=== PATIENT | female | born 1970 | race Caucasian/White ===

== ENCOUNTER → 2016-09-07 | Outpatient (CLI) | payer BC ==
[~2016-09-07] MED LIST: ALBU6.7H IH; BECL8.7A5 IH; HYDR-522 PO; IBUP-1510 PO; IMIT50 PO; LIOR10 PO; MONT10TA21 PO
== END | disposition home or self-care (01) ==
LOC: LAB 09:31
PROVIDERS: ATTEND Nurse Practitioner Family
DX: R73.03 Prediabetes (principal)
CPT/HCPCS: 83036

== ENCOUNTER → 2016-11-19 | Outpatient (CLI) | payer BC ==
[~2016-11-19] MED LIST changes: +BACL-141 PO; -LIOR10 PO
== END | disposition home or self-care (01) ==
LOC: US 09:26
PROVIDERS: ATTEND Obstetrics & Gynecology Obstetrics
DX: N92.6 Irregular menstruation, unspecified (principal); N88.8 Other specified noninflammatory disorders of cervix uteri
CPT/HCPCS: 76830; 76856

== ENCOUNTER → 2017-02-25 | Outpatient (CLI) | payer BC ==
[~2017-02-25] MED LIST changes: -IBUP-1510 PO; +IBUP-2030 PO
[2017-02-25 08:56] LABS: BASOPHILS % 0.5 % (0.0-2.0); EOSINOPHILS % 1.4 % (0.0-5.0); HEMATOCRIT. 35.1 % (36.0-48.0); HEMOGLOBIN. 11.6 g/dL (12.0-16.0); LYMPHOCYTES % 29.6 % (20.0-50.0); MEAN CORPUSCULAR HEMOGLOBIN 24.1 pg (28.0-32.0); MEAN CORPUSCULAR VOLUME 72.7 fL (81.0-99.0); MONOCYTES % 4.4 % (2.0-8.0); NEUTROPHILS % 64.1 % (40.0-76.0); PLATELET 387 x1000/uL (130-400); RED BLOOD CELL COUNT 4.83 mill/uL (4.2-5.4)
[2017-02-25 09:17] LABS: CARBON DIOXIDE 24 mEq/L (21-32); CHLORIDE 108 mEq/L (98-107)
== END | disposition home or self-care (01) ==
LOC: LAB 06:43
PROVIDERS: ATTEND Nurse Practitioner Family
DX: D72.829 Elevated white blood cell count, unspecified (principal); R73.03 Prediabetes
CPT/HCPCS: 36415; 80053; 83036; 85025

== ENCOUNTER → 2017-09-21 | Outpatient (CLI) | payer BC ==
[2017-09-21 11:57] LABS: BASOPHILS % 0.4 % (0.0-2.0); HEMATOCRIT. 37.2 % (36.0-48.0); HEMOGLOBIN. 12.3 g/dL (12.0-16.0); LYMPHOCYTES % 24.3 % (20.0-50.0); MEAN CORPUSCULAR HEMOGLOBIN 25.3 pg (28.0-32.0); MEAN CORPUSCULAR VOLUME 76.7 fL (81.0-99.0); MEAN PLATELET VOLUME 7.2 fl (7.4-10.4); MONOCYTES % 3.8 % (2.0-8.0); NEUTROPHILS % 70.5 % (40.0-76.0); PLATELET 419 x1000/uL (130-400); RED BLOOD CELL COUNT 4.85 mill/uL (4.2-5.4); RED CELL DISTRIBUTION WIDTH 16.7 % (11.6-14.6)
[2017-09-21 12:22] LABS: CHLORIDE 108 mEq/L (98-107)
[2017-09-21 12:31] LABS: HDL CHOLESTEROL 35 mg/dL (40-59); LDL CHOLESTEROL 85 mg/dL (5-100)
== END | disposition home or self-care (01) ==
LOC: LAB 11:08
PROVIDERS: ATTEND Nurse Practitioner Family
DX: K45.8 Other specified abdominal hernia without obstruction or gangrene (principal); M54.40 Lumbago with sciatica, unspecified side; R00.2 Palpitations
CPT/HCPCS: 36415; 80053; 82465; 83036; 83718; 83721; 85025

== ENCOUNTER → 2017-11-10 | Outpatient (CLI) | payer BC ==
[2017-11-10 11:59] LABS: HEMATOCRIT 37.9 % (36.0-48.0); HEMOGLOBIN 12.8 g/dL (12.0-16.0); MEAN CORPUSCULAR HEMOGLOBIN 25.6 pg (28.0-32.0); MEAN CORPUSCULAR VOLUME 76.2 fL (81.0-99.0); MEAN PLATELET VOLUME 7.1 fl (7.4-10.4); PLATELET 404 x1000/uL (130-400); RED BLOOD CELL COUNT 4.98 mill/uL (4.2-5.4); RED CELL DISTRIBUTION WIDTH 16.4 % (11.6-14.6)
[2017-11-10 12:35] LABS: TOTAL IRON BINDING CAPACITY 325 ug/dL (250-450)
[2017-11-10 17:35] LABS: PLATELET ESTIMATE INCREASED
[2017-11-10 19:49] LABS: CLARITY URINE CLOUDY (CLEAR); COLOR URINE YELLOW (YELLOW); KETONES URINE NEGATIVE (NEGATIVE); LEUKOCYTE ESTERASE URINE NEGATIVE (NEGATIVE); NITRITE URINE NEGATIVE (NEGATIVE); OCCULT BLOOD URINE NEGATIVE (NEGATIVE); PROTEIN URINE NEGATIVE (NEGATIVE); SPECIFIC GRAVITY URINE 1.017 (1.005-1.030); UROBILINOGEN URINE 0.2 E.U./dL (0.2-1.0)
== END | disposition home or self-care (01) ==
LOC: LAB 11:07
PROVIDERS: ATTEND Internal Medicine Hematology & Oncology
DX: D72.828 Other elevated white blood cell count (principal); D50.8 Other iron deficiency anemias
CPT/HCPCS: 36415; 81003; 82728; 83540; 83550; 85014; 85018; 85651; 87186

== ENCOUNTER → 2017-12-07 | Outpatient (CLI) | payer BC ==
[2017-12-07 11:06] LABS: BASOPHILS % 0.7 % (0.0-2.0); EOSINOPHILS % 1.4 % (0.0-5.0); HEMATOCRIT. 38.8 % (36.0-48.0); HEMOGLOBIN. 12.9 g/dL (12.0-16.0); LYMPHOCYTES % 24.9 % (20.0-50.0); MEAN CORPUSCULAR HEMOGLOBIN 25.6 pg (28.0-32.0); MEAN CORPUSCULAR VOLUME 77.2 fL (81.0-99.0); MEAN PLATELET VOLUME 7.2 fl (7.4-10.4); MONOCYTES % 4.4 % (2.0-8.0); NEUTROPHILS % 68.6 % (40.0-76.0); PLATELET 328 x1000/uL (130-400); RED BLOOD CELL COUNT 5.03 mill/uL (4.2-5.4); RED CELL DISTRIBUTION WIDTH 16.4 % (11.6-14.6)
[2017-12-07 11:07] LABS: CLARITY URINE CLEAR (CLEAR); COLOR URINE YELLOW (YELLOW); KETONES URINE NEGATIVE (NEGATIVE); LEUKOCYTE ESTERASE URINE NEGATIVE (NEGATIVE); NITRITE URINE NEGATIVE (NEGATIVE); OCCULT BLOOD URINE NEGATIVE (NEGATIVE); PROTEIN URINE NEGATIVE (NEGATIVE); SPECIFIC GRAVITY URINE 1.012 (1.005-1.030); UROBILINOGEN URINE 0.2 E.U./dL (0.2-1.0)
[2017-12-07 11:40] LABS: CHLORIDE 102 mEq/L (98-107)
== END | disposition home or self-care (01) ==
LOC: LAB 10:32
PROVIDERS: ATTEND Surgery
DX: Z01.818 Encounter for other preprocedural examination (principal); M54.2 Cervicalgia; R73.03 Prediabetes
CPT/HCPCS: 36415; 71045; 80053; 81003; 83036; 85025; 93005

== ENCOUNTER 2017-12-14 05:33 | Day surgery (SDC) | payer BC ==
[~2017-12-14] VITALS: Ht 157.5 cm; Wt 93.9 kg
[~2017-12-14 05:33] MED LIST changes: +LACTATED RINGERS 1,000 ML IV SCH
[2017-12-14] MEDS ORDERED: BUPIVACAINE HCL 0.5% (5MG/ML) 50ML ONE (06:03)
[2017-12-14] MEDS ORDERED: SKIN ADHESIVE 0.7 GM EA TOP ONE (06:03)
[2017-12-14 06:33] LABS: UCG SCREEN NEGATIVE
[2017-12-14] MEDS ORDERED: MIDAZOLAM HCL 5 MG/5 ML VIAL ONE (06:34)
[2017-12-14] MEDS ORDERED: PROPOFOL 200MG/20ML VIAL IV ONE ×2 (06:37→07:44)
[2017-12-14] MEDS ORDERED: PANT20TA3 PO (07:37)
[2017-12-14] MEDS ORDERED: GLYCOPYRROLATE 0.2 MG/ML 2ML VIAL ONE (09:23)
[2017-12-14] MEDS ORDERED: NEOSTIGMINE METHYLSULFATE 1MG/ML 10 ML VIAL ONE (09:23)
[2017-12-14] MEDS ORDERED: MORPHINE SULFATE 4 MG/ML CPJ (NOT FOR IM USE) IV PRN (10:15)
[2017-12-14] MEDS ORDERED: HYDROMORPHONE HCL/PF 2MG/ML CPJ IV NR (10:15)
[2017-12-14] MEDS ORDERED: ONDANSETRON HCL 4MG/2ML VIAL IV PRN (10:15)
[2017-12-14] MEDS ORDERED: HYDROMORPHONE HCL/PF 2MG/ML CPJ ONE (10:22)
[2017-12-14 11:02] VITALS: BP 106/68
== END 2017-12-14 11:30 | disposition home or self-care (01) ==
LOC: OR 05:33
PROVIDERS: ATTEND Surgery
DX: K43.9 Ventral hernia without obstruction or gangrene (principal); R73.03 Prediabetes; D50.9 Iron deficiency anemia, unspecified; Z88.0 Allergy status to penicillin; Z79.1 Long term (current) use of non-steroidal anti-inflammatories (NSAID); Z79.899 Other long term (current) drug therapy
CPT/HCPCS: 49652; 81025; C1781; G0168; J1170; J2250; J2270; J2710; J3490; J7120; J2405; J2704

== ENCOUNTER → 2018-03-14 | Outpatient (CLI) | payer BC ==
[~2018-03-14] MED LIST changes: -LACTATED RINGERS 1,000 ML IV SCH; +PANT20TA3 PO
== END | disposition home or self-care (01) ==
LOC: LAB 10:37
PROVIDERS: ATTEND Internal Medicine Nephrology
DX: E66.01 Morbid (severe) obesity due to excess calories (principal); R73.03 Prediabetes
CPT/HCPCS: 36415; 80061; 83036

== ENCOUNTER → 2018-07-12 | Outpatient (CLI) | payer BC ==
[~2018-07-12] MED LIST changes: +REGADENOSON 0.4 MG/5 ML IV ONE
== END | disposition home or self-care (01) ==
LOC: CARD 07:20
PROVIDERS: ATTEND Internal Medicine Clinical Cardiac Electrophysiology
DX: I20.8 Other forms of angina pectoris (principal); R06.02 Shortness of breath
CPT/HCPCS: 78452; 93017; A9500; J2785

== ENCOUNTER → 2018-11-11 | Outpatient (CLI) | payer BC ==
[~2018-11-11] MED LIST changes: -REGADENOSON 0.4 MG/5 ML IV ONE
[2018-11-11 10:20] LABS: BASOPHILS % 0.7 % (0.0-2.0); HEMATOCRIT. 38.3 % (36.0-48.0); HEMOGLOBIN. 12.7 g/dL (12.0-16.0); LYMPHOCYTES % 27.9 % (20.0-50.0); MEAN CORPUSCULAR HEMOGLOBIN 25.6 pg (28.0-32.0); MEAN CORPUSCULAR VOLUME 77.2 fL (81.0-99.0); MEAN PLATELET VOLUME 7.3 fl (7.4-10.4); MONOCYTES % 5.2 % (2.0-8.0); NEUTROPHILS % 65.2 % (40.0-76.0); PLATELET 374 x1000/uL (130-400); RED BLOOD CELL COUNT 4.97 mill/uL (4.2-5.4)
[2018-11-11 10:27] LABS: CHLORIDE 109 mEq/L (98-107)
== END | disposition home or self-care (01) ==
LOC: RAD 08:02
PROVIDERS: ATTEND Podiatrist Foot & Ankle Surgery
DX: M79.671 Pain in right foot (principal); M79.672 Pain in left foot; M10.9 Gout, unspecified; E11.9 Type 2 diabetes mellitus without complications
CPT/HCPCS: 36415; 73630; 83036; 84550

== ENCOUNTER 2019-07-11 14:02 | Emergency (ER) | payer BC ==
[~2019-07-11] VITALS: Ht 157.5 cm; Wt 97.0 kg
[~2019-07-11 14:02] MED LIST changes: -ALBU6.7H IH; +ALBU6.7H11 IH
[2019-07-11 14:46] VITALS: BP 110/43
== END 2019-07-11 14:47 | disposition home or self-care (01) ==
LOC: ER 14:02
DX: S52.121A Displaced fracture of head of right radius, initial encounter for closed fracture (principal); X58.XXXA Exposure to other specified factors, initial encounter; Y93.89 Activity, other specified; Y92.89 Other specified places as the place of occurrence of the external cause; Y99.8 Other external cause status; J45.909 Unspecified asthma, uncomplicated; Z98.890 Other specified postprocedural states; Z96.659 Presence of unspecified artificial knee joint; Z79.899 Other long term (current) drug therapy; Z88.0 Allergy status to penicillin
CPT/HCPCS: 29105; 99283

== ENCOUNTER → 2019-08-31 | Outpatient (CLI) | payer BC | END | disposition home or self-care (01) | LOC: CT 12:07 | PROVIDERS: ATTEND Surgery | DX: K42.9 Umbilical hernia without obstruction or gangrene (principal); K57.30 Diverticulosis of large intestine without perforation or abscess without bleeding; Z90.49 Acquired absence of other specified parts of digestive tract | CPT/HCPCS: 74176 ==

== ENCOUNTER → 2020-12-13 | Outpatient (CLI) | payer BC ==
[~2020-12-13] MED LIST changes: +PANT20TA17 PO; -PANT20TA3 PO
[2020-12-13 11:22] LABS: BASOPHILS % 0.4 % (0.0-2.0); EOSINOPHILS % 2.1 % (0.0-5.0); HEMATOCRIT. 40.3 % (36.0-48.0); HEMOGLOBIN. 14.1 g/dL (12.0-16.0); LYMPHOCYTES % 28.1 % (20.0-50.0); MEAN CORPUSCULAR HEMOGLOBIN 28.3 pg (28.0-32.0); MEAN CORPUSCULAR VOLUME 81.3 fL (81.0-99.0); MEAN PLATELET VOLUME 6.9 fl (7.4-10.4); MONOCYTES % 6.1 % (2.0-8.0); NEUTROPHILS % 63.3 % (40.0-76.0); PLATELET 391 x1000/uL (130-400); RED BLOOD CELL COUNT 4.96 mill/uL (4.2-5.4); RED CELL DISTRIBUTION WIDTH 13.9 % (11.6-14.6)
[2020-12-13 11:30] LABS: CHLORIDE 108 mEq/L (98-107)
[2020-12-13 11:36] LABS: LDL CHOLESTEROL 57 mg/dL (5-100)
[2020-12-13 11:37] LABS: HDL CHOLESTEROL 40 mg/dL (40-59)
[2020-12-13 11:38] LABS: T4 FREE 1.22 ng/dL (0.76-1.46)
[2020-12-13 11:52] LABS: FOLIC ACID (FOLATE) SERUM 10.7 ng/mL (>5.38)
== END | disposition home or self-care (01) ==
LOC: LAB 09:54
PROVIDERS: ATTEND Family Medicine
DX: Z13.29 Encounter for screening for other suspected endocrine disorder (principal); M17.11 Unilateral primary osteoarthritis, right knee; M25.761 Osteophyte, right knee; M25.561 Pain in right knee; M47.817 Spondylosis without myelopathy or radiculopathy, lumbosacral region; I10 Essential (primary) hypertension; E55.9 Vitamin D deficiency, unspecified; E78.5 Hyperlipidemia, unspecified
CPT/HCPCS: 36415; 72100; 73560; 80053; 80061; 82306; 82607; 82746; 83036; 84439; 84443; 84481; 85025

== ENCOUNTER → 2022-05-13 | Outpatient (CLI) | payer BC ==
[~2022-05-13] MED LIST changes: -ALBU6.7H11 IH; +ALBU6.7H15 IH
[2022-05-13 16:02] LABS: CHLORIDE 104 mEq/L (98-107)
[2022-05-13 16:11] LABS: HDL CHOLESTEROL 44 mg/dL (40-59); LDL CHOLESTEROL 78 mg/dL (5-100)
== END | disposition home or self-care (01) ==
LOC: MAMMO 09:40
PROVIDERS: ATTEND Family Medicine
DX: Z12.31 Encounter for screening mammogram for malignant neoplasm of breast (principal); I10 Essential (primary) hypertension; E55.9 Vitamin D deficiency, unspecified; E78.5 Hyperlipidemia, unspecified
CPT/HCPCS: 36415; 77067; 80053; 80061; 82306; 83036

== ENCOUNTER → 2022-08-31 | Outpatient (CLI) | payer BC ==
[2022-08-31 10:20] LABS: CHLORIDE 109 mEq/L (98-107)
[2022-08-31 10:27] LABS: HDL CHOLESTEROL 39 mg/dL (40-59); LDL CHOLESTEROL 69 mg/dL (5-100)
== END | disposition home or self-care (01) ==
LOC: LAB 08:57
PROVIDERS: ATTEND Family Medicine
DX: E11.65 Type 2 diabetes mellitus with hyperglycemia (principal); E55.9 Vitamin D deficiency, unspecified; E78.5 Hyperlipidemia, unspecified
CPT/HCPCS: 36415; 80053; 80061; 82306; 83036

== ENCOUNTER → 2023-05-25 | Outpatient (CLI) | payer BC ==
[~2023-05-25] MED LIST changes: +MONT-46 PO; -MONT10TA21 PO
== END | disposition home or self-care (01) ==
LOC: MAMMO 10:37
PROVIDERS: ATTEND Family Medicine
DX: Z12.31 Encounter for screening mammogram for malignant neoplasm of breast (principal)
CPT/HCPCS: 77063; 77067

== ENCOUNTER → 2023-06-01 | Outpatient (CLI) | payer BC ==
[2023-06-01 09:59] LABS: ALANINE AMINOTRANSFERASE 24 IU/L (10-49); ALBUMIN 4.2 g/dL (3.2-4.8); ASPARTATE AMINOTRANSFERASE 18 IU/L (<34); BILIRUBIN TOTAL 0.4 mg/dL (0.1-1.0); CALCIUM 9.3 mg/dL (8.7-10.4); CARBON DIOXIDE 26 mEq/L (21-32); CHLORIDE 107 mEq/L (98-107); CHOLESTEROL 110 mg/dL (<200); CREATININE 0.7 mg/dL (0.6-1.0); GLUCOSE 94 mg/dL (70-105); HDL CHOLESTEROL 34 mg/dL (>65); LDL CHOLESTEROL 83 mg/dL (5-100); POTASSIUM 4.4 mEq/L (3.5-5.1); PROTEIN TOTAL 6.7 g/dL (6.0-8.3); SODIUM 139 mEq/L (136-145); TRIGLYCERIDE 104 mg/dL (0-150); UREA NITROGEN BLOOD 9 mg/dL (9-23)
== END | disposition home or self-care (01) ==
LOC: LAB 09:12
PROVIDERS: ATTEND Family Medicine
DX: I10 Essential (primary) hypertension (principal); E11.65 Type 2 diabetes mellitus with hyperglycemia; E78.5 Hyperlipidemia, unspecified
CPT/HCPCS: 36415; 80053; 80061; 83036

== ENCOUNTER → 2023-07-07 | Outpatient (CLI) | payer BC ==
[~2023-07-07] MED LIST changes: +ASPI-1406 PO; +ATOR10TA69 PO; +HYDR-4001 PO; +LISI10TA26 PO; +MECL-115 PO; +ONDA4TAB50 PO; +OXYC-100 MT; +SEMA2PEN SQ; +SULF1TAB48 MT
[2023-07-07 09:36] LABS: BASOPHILS % 0.6 % (0.0-2.0); EOSINOPHILS % 0.8 % (0.0-5.0); HEMATOCRIT. 43.5 % (36.0-48.0); HEMOGLOBIN. 14.3 g/dL (12.0-16.0); LYMPHOCYTES % 24.6 % (20.0-50.0); MEAN CORPUSCULAR HEMOGLOBIN 27.7 pg (28.0-32.0); MEAN CORPUSCULAR HGB CONC 32.8 g/dL (31.0-37.0); MEAN CORPUSCULAR VOLUME 84.4 fL (81.0-99.0); MEAN PLATELET VOLUME 6.8 fl (7.4-10.4); MONOCYTES % 4.4 % (2.0-8.0); NEUTROPHILS % 69.6 % (40.0-76.0); PLATELET 403 x1000/uL (130-400); RED BLOOD CELL COUNT 5.16 mill/uL (4.2-5.4); RED CELL DISTRIBUTION WIDTH 14.7 % (11.6-14.6); WHITE BLOOD COUNT 13.6 x1000/uL (4.5-11.0)
[2023-07-07 09:50] LABS: CLARITY URINE CLEAR (CLEAR); COLOR URINE YELLOW (YELLOW)
[2023-07-07 09:50] LABS: ALANINE AMINOTRANSFERASE 17 IU/L (10-49); ALBUMIN 3.8 g/dL (3.2-4.8); ASPARTATE AMINOTRANSFERASE 10 IU/L (<34); BILIRUBIN TOTAL 0.4 mg/dL (0.1-1.0); CARBON DIOXIDE 27 mEq/L (21-32); CHLORIDE 103 mEq/L (98-107); CREATININE 0.8 mg/dL (0.6-1.0); GLUCOSE 95 mg/dL (70-105); POTASSIUM 3.8 mEq/L (3.5-5.1); PROTEIN TOTAL 6.9 g/dL (6.0-8.3); SODIUM 136 mEq/L (136-145); UREA NITROGEN BLOOD 12 mg/dL (9-23)
[2023-07-07 09:51] LABS: GLUCOSE URINE NEGATIVE (NEGATIVE); KETONES URINE NEGATIVE (NEGATIVE); LEUKOCYTE ESTERASE URINE NEGATIVE (NEGATIVE); NITRITE URINE NEGATIVE (NEGATIVE); OCCULT BLOOD URINE NEGATIVE (NEGATIVE); PROTEIN URINE NEGATIVE (NEGATIVE); UROBILINOGEN URINE 0.2 E.U./dL (0.2-1.0)
[2023-07-07 09:57] LABS: PARTIAL THROMBOPLASTIN TIME 27.7 sec (23.4-31.0); PROTHROMBIN TIME 10.3 sec (9.6-11.0)
== END | disposition home or self-care (01) ==
LOC: LAB 09:05
DX: Z01.818 Encounter for other preprocedural examination (principal); M17.12 Unilateral primary osteoarthritis, left knee
CPT/HCPCS: 36415; 71045; 80053; 81003; 85025; 86850; 86900; 93005

== ENCOUNTER 2023-07-09 06:25 | Inpatient (IN) | payer BC ==
[~2023-07-09] VITALS: Ht 157.5 cm; Wt 88.5 kg
[~2023-07-09 06:25] MED LIST changes: -ASPI-1406 PO; -BECL8.7A5 IH; -HYDR-522 PO; -IBUP-2030 PO; -IMIT50 PO; -OXYC-100 MT; -SEMA2PEN SQ; +SODIUM CHLORIDE 0.9% 1,000 ML IV SCH; -SULF1TAB48 MT
[2023-07-09] MEDS ORDERED: LIDOCAINE HCL 1%/EPI 1:200,000 30 ML VIAL ONE (06:53)
[2023-07-09] MEDS ORDERED: SKIN ADHESIVE 0.7 GM EA TOP ONE ×2 (06:53→07:07)
[2023-07-09] MEDS ORDERED: POLYMYXIN B SULFATE 500000 UNITS/VIAL ONE (06:53)
[2023-07-09] MEDS ORDERED: BUPIVACAINE HCL/PF 0.5% (5MG/ML) 10ML ONE (06:54)
[2023-07-09] MEDS ORDERED: ROPIVACAINE HCL 1% 20 ML VIAL EPI ONE (07:07)
[2023-07-09] MEDS ORDERED: KETOROLAC 30MG/ML VIAL ONE (07:07)
[2023-07-09] MEDS ORDERED: MORPHINE SULFATE/PF 1MG/ML 10ML AMP ONE (07:07)
[2023-07-09] MEDS ORDERED: VANCOMYCIN HCL 1 GM/VIAL ONE (08:18)
[2023-07-09] MEDS ORDERED: ASPI-1406 PO (08:21)
[2023-07-09] MEDS ORDERED: SULF1TAB48 MT (08:22)
[2023-07-09] MEDS ORDERED: OXYC-100 MT (08:22)
[2023-07-09] MEDS ORDERED: DEXAMETHASONE 4MG/ML 1ML VIAL ONE (08:33)
[2023-07-09] MEDS ORDERED: ONDANSETRON HCL 4MG/2ML INJ ONE (08:33)
[2023-07-09] MEDS ORDERED: PROPOFOL 200MG/20ML VIAL IV ONE (08:33)
[2023-07-09] MEDS ORDERED: LIDOCAINE HCL 1% 10 MG/ML 10ML VIAL ONE (08:33)
[2023-07-09] MEDS ORDERED: MIDAZOLAM HCL 2 MG/2 ML VIAL ONE (08:34)
[2023-07-09] MEDS ORDERED: FENTANYL CITRATE/PF 50MCG/ML 2ML VIAL ONE (08:34)
[2023-07-09] MEDS ORDERED: CLINDAMYCIN 600MG PREMIX 50 ML IV ONE ×2 (08:49→08:57)
[2023-07-09] MEDS ORDERED: TRANEXAMIC ACID 20 ML ONE (09:00)
[2023-07-09] MEDS ORDERED: MEPERIDINE HCL/PF 25MG/ML CPJ IV PRN (09:30)
[2023-07-09] MEDS ORDERED: HYDROMORPHONE HCL/PF 2MG/ML CPJ IV PRN (09:30)
[2023-07-09] MEDS ORDERED: LABETALOL 5MG/ML SYR 20 MG/4 ML SYRINGE IV PRN (09:30)
[2023-07-09] MEDS ORDERED: ONDANSETRON HCL 4MG/2ML INJ IV PRN ×2 (09:30→10:30)
[2023-07-09] MEDS ORDERED: CEFAZOLIN 1000MG PREMIX 50 ML IV SCH ×2 (10:30)
[2023-07-09] MEDS ORDERED: ACETAMINOPHEN 325MG TABLET PO PRN (10:30)
[2023-07-09] MEDS ORDERED: KETOROLAC 30MG/ML VIAL IV PRN (10:30)
[2023-07-09] MEDS ORDERED: DEXTROSE 50% WATER 50ML SYRINGE IV PRN (11:00)
[2023-07-09] MEDS ORDERED: NALOXONE HCL 0.4MG/ML VIAL IV PRN (11:00)
[2023-07-09] MEDS ORDERED: SEMA2PEN SQ (11:05)
[2023-07-09] MEDS ORDERED: SCOPOLAMINE HYDROBROMIDE PATCH 72HR TD NR ×2 (12:45)
[2023-07-09] MEDS: INSULIN LISPRO (LOW DOSE) 100 UNITS/ML SUBCUT SCH ×3 (13:00→21:00)
[2023-07-09] MEDS: BLOOD SUGAR DIAGNOSTIC STRIP TEST SCH ×3 (13:02→21:00)
[2023-07-09] MEDS: METOCLOPRAMIDE HCL 10MG/2ML VIAL IV SCH ×2 (13:50→23:54)
[2023-07-09 16:00] VITALS: BP 92/47; PULSE 70; RESP 20; TEMP 96.4
[2023-07-09] MEDS: SENNOSIDES/DOCUSATE SOD 8.6/50MG TABLET PO SCH (17:00)
[2023-07-09 17:23] VITALS: BP 92/47; PULSE 70; RESP 20; TEMP 96.4
[2023-07-09] MEDS: VANCOMYCIN 1G PREMIX 200 ML IV SCH (18:09)
[2023-07-09 20:00] VITALS: BP 98/54; PULSE 77; RESP 20; TEMP 97.7
[2023-07-09] MEDS ORDERED: BACLOFEN 10MG TABLET PO PRN (22:00)
[2023-07-09] MEDS ORDERED: PANTOPRAZOLE SODIUM 40 MG/VIAL IV PRN (22:00)
[2023-07-09] MEDS ORDERED: ALBUTEROL (0.083%) 2.5MG/3ML NEB HHN PRN (22:00)
[2023-07-09] MEDS ORDERED: DIPHENHYDRAMINE 25MG CAPSULE PO NR (23:45)
[2023-07-09] MEDS: DIPHENHYDRAMINE 50MG/ML VIAL IV PRN (23:54)
[2023-07-10] VITALS: BP 96/57; PULSE 86; RESP 20; TEMP 95.7
[2023-07-10 04:00] VITALS: BP 91/60; PULSE 98; RESP 20; TEMP 97.7
[2023-07-10] MEDS: METOCLOPRAMIDE HCL 10MG/2ML VIAL IV SCH ×3 (05:01→21:34)
[2023-07-10] MEDS: VANCOMYCIN 1G PREMIX 200 ML IV SCH ×2 (05:02→17:47)
[2023-07-10] MEDS: BLOOD SUGAR DIAGNOSTIC STRIP TEST SCH ×4 (07:20→21:07)
[2023-07-10] MEDS: INSULIN LISPRO (LOW DOSE) 100 UNITS/ML SUBCUT SCH ×4 (07:50→21:00)
[2023-07-10 08:00] VITALS: BP 105/48; PULSE 88; RESP 20; TEMP 97.9
[2023-07-10] MEDS: LISINOPRIL 5MG TABLET PO SCH ×2 (08:38→08:41)
[2023-07-10] MEDS: ASPIRIN 81MG TABLET PO SCH ×2 (08:38→17:47)
[2023-07-10] MEDS: SENNOSIDES/DOCUSATE SOD 8.6/50MG TABLET PO SCH ×2 (08:38→17:47)
[2023-07-10 08:44] LABS: BASOPHILS % 0.2 % (0.0-2.0); EOSINOPHILS % 0.4 % (0.0-5.0); HEMATOCRIT. 37.9 % (36.0-48.0); HEMOGLOBIN. 12.7 g/dL (12.0-16.0); LYMPHOCYTES % 13.5 % (20.0-50.0); MEAN CORPUSCULAR HEMOGLOBIN 28.1 pg (28.0-32.0); MEAN CORPUSCULAR HGB CONC 33.5 g/dL (31.0-37.0); MEAN CORPUSCULAR VOLUME 84.1 fL (81.0-99.0); MEAN PLATELET VOLUME 7.2 fl (7.4-10.4); MONOCYTES % 6.6 % (2.0-8.0); NEUTROPHILS % 79.3 % (40.0-76.0); PLATELET 288 x1000/uL (130-400); RED BLOOD CELL COUNT 4.51 mill/uL (4.2-5.4); RED CELL DISTRIBUTION WIDTH 14.8 % (11.6-14.6); WHITE BLOOD COUNT 15.1 x1000/uL (4.5-11.0)
[2023-07-10 08:57] LABS: ALANINE AMINOTRANSFERASE 20 IU/L (10-49); ALBUMIN 3.4 g/dL (3.2-4.8); ASPARTATE AMINOTRANSFERASE 14 IU/L (<34); BILIRUBIN TOTAL 0.8 mg/dL (0.1-1.0); CARBON DIOXIDE 27 mEq/L (21-32); CHLORIDE 103 mEq/L (98-107); CREATININE 0.6 mg/dL (0.6-1.0); GLUCOSE 111 mg/dL (70-105); POTASSIUM 3.9 mEq/L (3.5-5.1); PROTEIN TOTAL 6.3 g/dL (6.0-8.3); SODIUM 138 mEq/L (136-145); UREA NITROGEN BLOOD 13 mg/dL (9-23)
[2023-07-10] MEDS: HYDROCODONE/ACETAMINOPHEN 5/325MG TABLET PO PRN ×4 (10:04→21:21)
[2023-07-10 12:00] VITALS: BP 104/54; PULSE 109; RESP 20; TEMP 98.2
[2023-07-10] MEDS: DIPHENHYDRAMINE 50MG/ML VIAL IV PRN ×2 (12:50→21:34)
[2023-07-10 16:00] VITALS: BP 126/67; PULSE 89; RESP 19; TEMP 96.6
[2023-07-10] MEDS: MONTELUKAST SODIUM 10MG TABLET PO SCH (17:47)
[2023-07-10 20:00] VITALS: BP 111/53; PULSE 93; RESP 20; TEMP 99.3
[2023-07-10] MEDS: VANCOMYCIN 750MG PREMIX 150 ML IV SCH (20:32)
[2023-07-10] MEDS: ATORVASTATIN CALCIUM 10MG TABLET PO SCH (21:34)
[2023-07-11] VITALS: BP 119/61; PULSE 97; RESP 20; TEMP 99.5
[2023-07-11] MEDS: HYDROCODONE/ACETAMINOPHEN 5/325MG TABLET PO PRN ×8 (00:25→22:13)
[2023-07-11 04:00] VITALS: BP 128/69; PULSE 85; RESP 20; TEMP 97.7
[2023-07-11] MEDS: METOCLOPRAMIDE HCL 10MG/2ML VIAL IV SCH ×3 (06:46→21:46)
[2023-07-11] MEDS: BLOOD SUGAR DIAGNOSTIC STRIP TEST SCH ×4 (06:47→20:55)
[2023-07-11] MEDS: INSULIN LISPRO (LOW DOSE) 100 UNITS/ML SUBCUT SCH ×4 (07:50→20:56)
[2023-07-11] MEDS: VANCOMYCIN 750MG PREMIX 150 ML IV SCH ×2 (07:55→20:55)
[2023-07-11 08:00] VITALS: BP 108/66; PULSE 85; RESP 19; TEMP 97.5
[2023-07-11] MEDS: LISINOPRIL 5MG TABLET PO SCH (08:06)
[2023-07-11] MEDS: SENNOSIDES/DOCUSATE SOD 8.6/50MG TABLET PO SCH ×2 (08:06→17:42)
[2023-07-11] MEDS: ASPIRIN 81MG TABLET PO SCH ×2 (08:06→17:43)
[2023-07-11 12:00] VITALS: BP 126/77; PULSE 88; RESP 17; TEMP 98.8
[2023-07-11 16:00] VITALS: BP 130/68; PULSE 91; RESP 16; TEMP 98.1
[2023-07-11] MEDS: MONTELUKAST SODIUM 10MG TABLET PO SCH (17:43)
[2023-07-11 20:00] VITALS: BP 118/56; PULSE 94; RESP 18; TEMP 98.2
[2023-07-11] MEDS: ATORVASTATIN CALCIUM 10MG TABLET PO SCH (20:55)
[2023-07-12] VITALS: BP 123/59; PULSE 77; RESP 16; TEMP 98.1
[2023-07-12] MEDS: HYDROCODONE/ACETAMINOPHEN 5/325MG TABLET PO PRN ×7 (01:23→22:48)
[2023-07-12 04:00] VITALS: BP 128/71; PULSE 96; RESP 18; TEMP 97.9
[2023-07-12] MEDS: METOCLOPRAMIDE HCL 10MG/2ML VIAL IV SCH ×2 (05:59→14:00)
[2023-07-12] MEDS: BLOOD SUGAR DIAGNOSTIC STRIP TEST SCH ×4 (07:00→21:00)
[2023-07-12] MEDS: INSULIN LISPRO (LOW DOSE) 100 UNITS/ML SUBCUT SCH ×4 (07:01→21:00)
[2023-07-12 08:00] VITALS: BP 106/60; PULSE 86; RESP 19; TEMP 98.2
[2023-07-12] MEDS: SENNOSIDES/DOCUSATE SOD 8.6/50MG TABLET PO SCH ×2 (09:08→17:12)
[2023-07-12] MEDS: ASPIRIN 81MG TABLET PO SCH ×2 (09:08→17:12)
[2023-07-12] MEDS: LISINOPRIL 5MG TABLET PO SCH (09:08)
[2023-07-12 12:00] VITALS: BP_SYST 106; BP_SYST 108; BP_DIAS 60; BP_DIAS 64; PULSE 82; PULSE 86; RESP 18; RESP 19; TEMP 98.2
[2023-07-12 16:00] VITALS: BP 110/64; PULSE 92; RESP 19; TEMP 97.9
[2023-07-12] MEDS: MONTELUKAST SODIUM 10MG TABLET PO SCH (17:12)
[2023-07-12 20:00] VITALS: BP 90/34; PULSE 91; RESP 20; TEMP 98.1
[2023-07-12] MEDS: ATORVASTATIN CALCIUM 10MG TABLET PO SCH (22:32)
[2023-07-13] VITALS: BP 101/38; PULSE 81; RESP 20; TEMP 97.9
[2023-07-13 04:00] VITALS: BP 105/56; PULSE 85; RESP 20; TEMP 96.3
[2023-07-13] MEDS: HYDROCODONE/ACETAMINOPHEN 5/325MG TABLET PO PRN ×5 (05:00→21:48)
[2023-07-13] MEDS: BLOOD SUGAR DIAGNOSTIC STRIP TEST SCH ×4 (06:56→21:00)
[2023-07-13] MEDS: INSULIN LISPRO (LOW DOSE) 100 UNITS/ML SUBCUT SCH ×4 (07:49→21:00)
[2023-07-13 08:00] VITALS: BP 103/50; PULSE 72; RESP 18; TEMP 96.9
[2023-07-13] MEDS: SENNOSIDES/DOCUSATE SOD 8.6/50MG TABLET PO SCH ×2 (09:00→16:58)
[2023-07-13] MEDS: ASPIRIN 81MG TABLET PO SCH ×2 (09:00→16:58)
[2023-07-13] MEDS: LISINOPRIL 5MG TABLET PO SCH (09:00)
[2023-07-13 12:00] VITALS: BP 130/62; PULSE 79; RESP 19; TEMP 96.9
[2023-07-13 16:00] VITALS: BP 112/57; PULSE 89; RESP 17; TEMP 96.9
[2023-07-13] MEDS: MONTELUKAST SODIUM 10MG TABLET PO SCH (16:58)
[2023-07-13 20:00] VITALS: BP 109/42; PULSE 82; RESP 19; TEMP 98.6
[2023-07-13] MEDS: ATORVASTATIN CALCIUM 10MG TABLET PO SCH (21:46)
[2023-07-14] VITALS: BP 100/55; PULSE 75; RESP 20; TEMP 97.4
[2023-07-14] MEDS: HYDROCODONE/ACETAMINOPHEN 5/325MG TABLET PO PRN ×3 (03:02→08:57)
[2023-07-14 04:00] VITALS: BP 97/44; PULSE 74; RESP 17; TEMP 98
[2023-07-14] MEDS: BLOOD SUGAR DIAGNOSTIC STRIP TEST SCH ×3 (06:22→17:02)
[2023-07-14] MEDS: INSULIN LISPRO (LOW DOSE) 100 UNITS/ML SUBCUT SCH ×2 (07:50→12:50)
[2023-07-14 08:00] VITALS: BP 110/59; PULSE 69; RESP 19; TEMP 97.5
[2023-07-14] MEDS: LISINOPRIL 5MG TABLET PO SCH (08:46)
[2023-07-14] MEDS: SENNOSIDES/DOCUSATE SOD 8.6/50MG TABLET PO SCH ×2 (08:46→16:59)
[2023-07-14] MEDS: ASPIRIN 81MG TABLET PO SCH ×2 (08:46→16:59)
[2023-07-14 12:00] VITALS: BP 99/48; PULSE 81; RESP 19; TEMP 97.5
[2023-07-14 16:00] VITALS: BP 92/72; PULSE 82; RESP 19; TEMP 98.1
[2023-07-14] MEDS: MONTELUKAST SODIUM 10MG TABLET PO SCH (16:59)
[2023-07-14 17:50] VITALS: BP 110/60; PULSE 69; TEMP 97.8
== END 2023-07-14 18:39 | disposition home health service (06) | DRG 470 ==
LOC: OR 06:25 → 6EST 14:41
PROC: 0SRD0JA Replacement of Left Knee Joint with Synthetic Substitute, Uncemented, Open Approach (ICD-10-PCS; principal; 2023-07-09)
DX: M17.12 Unilateral primary osteoarthritis, left knee (principal); Z88.0 Allergy status to penicillin
CPT/HCPCS: 36415; 73562; 80053; 82962; 85025; 88305; 88311; 97110; 97116; 97162; 97166; 97530; J1100; J1200; J1885; J2250; J2274; J2405; J2704; J2765; J2795; J3010; J3370; J3490

== ENCOUNTER → 2023-07-26 | Outpatient (CLI) | payer BC ==
[~2023-07-26] MED LIST changes: +ASPI-1406 PO; +OXYC-100 MT; +SEMA2PEN SQ; -SODIUM CHLORIDE 0.9% 1,000 ML IV SCH; +SULF1TAB48 MT; +TRAM100C3 MT
== END | disposition home or self-care (01) ==
LOC: RAD 13:06
DX: M17.12 Unilateral primary osteoarthritis, left knee (principal); Z96.652 Presence of left artificial knee joint
CPT/HCPCS: 73562

== ENCOUNTER → 2023-09-06 | Outpatient (CLI) | payer BC ==
[~2023-09-06] MED LIST changes: +TRAM50TA3 MT; +TRAM50TA3 PO
== END | disposition home or self-care (01) ==
LOC: RAD 12:35
DX: M17.0 Bilateral primary osteoarthritis of knee (principal); Z96.652 Presence of left artificial knee joint
CPT/HCPCS: 73562

== ENCOUNTER → 2023-09-17 | Outpatient (CLI) | payer BC ==
[2023-09-17 08:53] LABS: BASOPHILS % 0.4 % (0.0-2.0); HEMATOCRIT. 41.2 % (36.0-48.0); LYMPHOCYTES % 26.9 % (20.0-50.0); MEAN CORPUSCULAR HEMOGLOBIN 28.1 pg (28.0-32.0); MEAN CORPUSCULAR VOLUME 82.6 fL (81.0-99.0); MEAN PLATELET VOLUME 7.4 fl (7.4-10.4); MONOCYTES % 4.7 % (2.0-8.0); PLATELET 369 x1000/uL (130-400); RED BLOOD CELL COUNT 4.99 mill/uL (4.2-5.4); RED CELL DISTRIBUTION WIDTH 14.4 % (11.6-14.6); WHITE BLOOD COUNT 9.9 x1000/uL (4.5-11.0)
[2023-09-17 08:58] LABS: CLARITY URINE CLEAR (CLEAR); COLOR URINE YELLOW (YELLOW); GLUCOSE URINE NEGATIVE (NEGATIVE); KETONES URINE NEGATIVE (NEGATIVE); LEUKOCYTE ESTERASE URINE NEGATIVE (NEGATIVE); NITRITE URINE NEGATIVE (NEGATIVE); OCCULT BLOOD URINE NEGATIVE (NEGATIVE); PH URINE 5.5 (4.5-8.0); PROTEIN URINE NEGATIVE (NEGATIVE); SPECIFIC GRAVITY URINE 1.007 (1.005-1.030); UROBILINOGEN URINE 0.2 E.U./dL (0.2-1.0)
[2023-09-17 09:27] LABS: ALANINE AMINOTRANSFERASE 16 IU/L (10-49); ALBUMIN 4.4 g/dL (3.2-4.8); ASPARTATE AMINOTRANSFERASE 17 IU/L (<34); BILIRUBIN TOTAL 0.4 mg/dL (0.1-1.0); CARBON DIOXIDE 25 mEq/L (21-32); CHLORIDE 107 mEq/L (98-107); CHOLESTEROL 121 mg/dL (<200); CREATININE 0.7 mg/dL (0.6-1.0); GLUCOSE 102 mg/dL (70-105); HDL CHOLESTEROL 41 mg/dL (>65); IRON 60 ug/dL (50-170); LDL CHOLESTEROL 69 mg/dL (5-100); PROTEIN TOTAL 7.9 g/dL (6.0-8.3); SODIUM 137 mEq/L (136-145); THYROID STIMULATING HORMONE 1.52 uIU/mL (0.55-4.78); TOTAL IRON BINDING CAPACITY 229 ug/dl (250-425); TRIGLYCERIDE 94 mg/dL (0-150); UREA NITROGEN BLOOD 10 mg/dL (9-23)
[2023-09-17 11:08] LABS: FERRITIN 180 ng/mL (10-291); FOLIC ACID (FOLATE) SERUM 13.09 ng/mL (>5.38); VITAMIN B12 SERUM 909 pg/mL (211-911)
== END | disposition home or self-care (01) ==
LOC: LAB 08:30
PROVIDERS: ATTEND Internal Medicine Geriatric Medicine
DX: Z00.01 Encounter for general adult medical examination with abnormal findings (principal); N39.0 Urinary tract infection, site not specified; E11.9 Type 2 diabetes mellitus without complications; E78.00 Pure hypercholesterolemia, unspecified
CPT/HCPCS: 36415; 80053; 80061; 81003; 82306; 82607; 82728; 82746; 83036; 83540; 83550; 84443; 85025; 86592

== ENCOUNTER → 2023-12-20 | Outpatient (CLI) | payer BC | END | disposition home or self-care (01) | LOC: RAD 12:04 | DX: M17.11 Unilateral primary osteoarthritis, right knee (principal); M25.761 Osteophyte, right knee; Z96.652 Presence of left artificial knee joint | CPT/HCPCS: 73562 ==

== ENCOUNTER → 2024-01-27 | Outpatient (CLI) | payer BC ==
[2024-01-27 12:13] LABS: BASOPHILS % 0.6 % (0.0-2.0); EOSINOPHILS % 0.8 % (0.0-5.0); HEMATOCRIT. 41.9 % (36.0-48.0); HEMOGLOBIN. 14.1 g/dL (12.0-16.0); LYMPHOCYTES % 27.1 % (20.0-50.0); MEAN CORPUSCULAR HEMOGLOBIN 28.2 pg (28.0-32.0); MEAN CORPUSCULAR HGB CONC 33.8 g/dL (31.0-37.0); MEAN CORPUSCULAR VOLUME 83.5 fL (81.0-99.0); MEAN PLATELET VOLUME 7.3 fl (7.4-10.4); MONOCYTES % 4.5 % (2.0-8.0); PLATELET 397 x1000/uL (130-400); RED BLOOD CELL COUNT 5.02 mill/uL (4.2-5.4); RED CELL DISTRIBUTION WIDTH 14.5 % (11.6-14.6); WHITE BLOOD COUNT 10.9 x1000/uL (4.5-11.0)
[2024-01-27 13:23] LABS: ERYTHROCYTE SEDIMENTATION RATE 18 mm/hr (0-30)
[2024-01-31 10:10] LABS: ANTI-NUCLEAR ANTIBODIES DIRECT Negative (Negative)
== END | disposition home or self-care (01) ==
LOC: LAB 11:09
PROVIDERS: ATTEND Internal Medicine Geriatric Medicine
DX: L20.9 Atopic dermatitis, unspecified (principal)
CPT/HCPCS: 36415; 85025; 85651; 86003; 86038; 86141

== ENCOUNTER → 2024-03-02 | Outpatient (CLI) | payer BC | END | disposition home or self-care (01) | LOC: MRI 10:51 | PROVIDERS: ATTEND Internal Medicine Geriatric Medicine | DX: S43.492A Other sprain of left shoulder joint, initial encounter (principal); M19.012 Primary osteoarthritis, left shoulder; M75.02 Adhesive capsulitis of left shoulder; M65.812 Other synovitis and tenosynovitis, left shoulder; R60.0 Localized edema; X58.XXXA Exposure to other specified factors, initial encounter; Y93.89 Activity, other specified; Y92.89 Other specified places as the place of occurrence of the external cause; Y99.8 Other external cause status | CPT/HCPCS: 73221 ==

== ENCOUNTER → 2024-06-15 | Outpatient (CLI) | payer BC ==
[~2024-06-15] MED LIST changes: +MELO-106 MT
== END | disposition home or self-care (01) ==
LOC: RAD 13:39
DX: M17.11 Unilateral primary osteoarthritis, right knee (principal); M25.761 Osteophyte, right knee; Z96.653 Presence of artificial knee joint, bilateral
CPT/HCPCS: 73560

== ENCOUNTER → 2024-07-31 | Outpatient (CLI) | payer BC ==
[2024-07-31 10:36] LABS: CHLORIDE 105 mEq/L (98-107); POTASSIUM 4.5 mEq/L (3.5-5.1); SODIUM 139 mEq/L (136-145)
[2024-07-31 10:37] LABS: CALCIUM 9.9 mg/dL (8.7-10.4); CARBON DIOXIDE 28 mEq/L (21-32)
[2024-07-31 10:42] LABS: CREATININE 0.8 mg/dL (0.6-1.0); GLUCOSE 92 mg/dL (70-105); TRIGLYCERIDE 112 mg/dL (0-150); UREA NITROGEN BLOOD 15 mg/dL (9-23)
[2024-07-31 10:43] LABS: LDL CHOLESTEROL 67 mg/dL (5-100)
[2024-07-31 10:44] LABS: ALANINE AMINOTRANSFERASE 16 IU/L (10-49); ALBUMIN 4.4 g/dL (3.2-4.8); ASPARTATE AMINOTRANSFERASE 13 IU/L (<34); BILIRUBIN TOTAL 0.5 mg/dL (0.1-1.0); CHOLESTEROL 125 mg/dL (<200); HDL CHOLESTEROL 43 mg/dL (>65); PROTEIN TOTAL 7.2 g/dL (6.0-8.3)
== END | disposition home or self-care (01) ==
LOC: LAB 09:45
PROVIDERS: ATTEND Internal Medicine Geriatric Medicine
DX: E11.69 Type 2 diabetes mellitus with other specified complication (principal)
CPT/HCPCS: 36415; 80053; 80061; 83036

== ENCOUNTER → 2024-08-21 | Outpatient (CLI) | payer BC ==
[2024-08-21 10:59] LABS: CLARITY URINE CLEAR (CLEAR); COLOR URINE YELLOW (YELLOW); GLUCOSE URINE NEGATIVE (NEGATIVE); KETONES URINE NEGATIVE (NEGATIVE); LEUKOCYTE ESTERASE URINE NEGATIVE (NEGATIVE); NITRITE URINE NEGATIVE (NEGATIVE); OCCULT BLOOD URINE NEGATIVE (NEGATIVE); PH URINE 5.5 (4.5-8.0); PROTEIN URINE NEGATIVE (NEGATIVE); SPECIFIC GRAVITY URINE 1.008 (1.005-1.030); UROBILINOGEN URINE 0.2 E.U./dL (0.2-1.0)
[2024-08-21 11:07] LABS: BASOPHILS % 0.6 % (0.0-2.0); EOSINOPHILS % 1.7 % (0.0-5.0); HEMATOCRIT. 44.5 % (36.0-48.0); HEMOGLOBIN. 14.7 g/dL (12.0-16.0); MEAN CORPUSCULAR HEMOGLOBIN 27.4 pg (28.0-32.0); MEAN CORPUSCULAR VOLUME 83.2 fL (81.0-99.0); MEAN PLATELET VOLUME 7.5 fl (7.4-10.4); NEUTROPHILS % 66.7 % (40.0-76.0); PLATELET 349 x1000/uL (130-400); RED BLOOD CELL COUNT 5.35 mill/uL (4.2-5.4); RED CELL DISTRIBUTION WIDTH 14.1 % (11.6-14.6); WHITE BLOOD COUNT 10.5 x1000/uL (4.5-11.0)
[2024-08-21 11:17] LABS: CARBON DIOXIDE 24 mEq/L (21-32); CHLORIDE 109 mEq/L (98-107); POTASSIUM 3.9 mEq/L (3.5-5.1); SODIUM 141 mEq/L (136-145)
[2024-08-21 11:18] LABS: CALCIUM 9.6 mg/dL (8.7-10.4)
[2024-08-21 11:22] LABS: CREATININE 0.8 mg/dL (0.6-1.0); IRON 59 ug/dL (50-170)
[2024-08-21 11:23] LABS: GLUCOSE 88 mg/dL (70-105); TRIGLYCERIDE 95 mg/dL (0-150); URIC ACID 5.9 mg/dL (3.1-7.8)
[2024-08-21 11:24] LABS: ALANINE AMINOTRANSFERASE 22 IU/L (10-49); ALBUMIN 4.3 g/dL (3.2-4.8); ASPARTATE AMINOTRANSFERASE 17 IU/L (<34); LDL CHOLESTEROL 65 mg/dL (5-100); UREA NITROGEN BLOOD 11 mg/dL (9-23)
[2024-08-21 11:25] LABS: BILIRUBIN TOTAL 0.4 mg/dL (0.1-1.0); CHOLESTEROL 125 mg/dL (<200); HDL CHOLESTEROL 46 mg/dL (>65); PROTEIN TOTAL 7.3 g/dL (6.0-8.3)
[2024-08-21 11:28] LABS: THYROID STIMULATING HORMONE 1.05 uIU/mL (0.55-4.78)
[2024-08-21 11:36] LABS: FOLIC ACID (FOLATE) SERUM 11.23 ng/mL (>5.38)
[2024-08-23 08:08] LABS: T4 THYROXINE 11.8 ug/dL (4.5-12.0); VITAMIN D 25-OH 24.1 ng/mL (30.0-100.0)
== END | disposition home or self-care (01) ==
LOC: RAD 09:45
PROVIDERS: ATTEND Internal Medicine Geriatric Medicine
DX: Z01.818 Encounter for other preprocedural examination (principal); E11.9 Type 2 diabetes mellitus without complications; M75.100 Unspecified rotator cuff tear or rupture of unspecified shoulder, not specified as traumatic; E78.5 Hyperlipidemia, unspecified
CPT/HCPCS: 36415; 71046; 80053; 80061; 81003; 82306; 82728; 82746; 83036; 83540; 83735; 84436; 84443; 84550; 85025

== ENCOUNTER 2024-08-25 08:31 | Inpatient (IN) | payer BC ==
[~2024-08-25] VITALS: Ht 157.5 cm; Wt 88.0 kg
[~2024-08-25 08:31] MED LIST changes: +EPINEPHRINE 1:1000 1 MG/ML AMP ONE; +LIDOCAINE HCL/EPINEPHRINE 1%-EPI 1:100,000 20ML VIAL ONE; +POLYMYXIN B SULFATE 500000 UNITS/VIAL ONE; +VANCOMYCIN HCL 1GM VIAL ONE
[2024-08-25] MEDS ORDERED: SODIUM CHLORIDE 0.9% 1,000 ML IV SCH (09:30)
[2024-08-25] MEDS ORDERED: LEVO5TAB29 PO (09:33)
[2024-08-25] MEDS ORDERED: ACETAMINOPHEN 325MG TABLET PO PRN (09:45)
[2024-08-25] MEDS ORDERED: CEFAZOLIN 1000MG PREMIX 50 ML IV SCH ×2 (09:45→11:00)
[2024-08-25] MEDS ORDERED: ALBUTEROL 6.7GM HFA INHALER ORI PRN (09:45)
[2024-08-25] MEDS ORDERED: PROPOFOL 200MG/20ML VIAL IV ONE (09:47)
[2024-08-25] MEDS ORDERED: FENTANYL CITRATE/PF 50MCG/ML 2ML VIAL ONE ×2 (09:48→10:41)
[2024-08-25] MEDS ORDERED: MIDAZOLAM HCL 2 MG/2 ML VIAL ONE (09:48)
[2024-08-25] MEDS ORDERED: LIDOCAINE HCL 1% 20ML VIAL ONE (09:51)
[2024-08-25] MEDS ORDERED: CLINDAMYCIN 900MG PREMIX 50 ML IV ONE (09:55)
[2024-08-25] MEDS ORDERED: NALOXONE HCL 0.4MG/ML VIAL IV PRN (10:00)
[2024-08-25] MEDS ORDERED: TRANEXAMIC ACID 1000MG PREMIX 200 ML IV ONE (10:10)
[2024-08-25] MEDS ORDERED: VANCOMYCIN HCL 1GM VIAL ONE (10:13)
[2024-08-25] MEDS ORDERED: HYDROMORPHONE HCL/PF 2MG/ML INJ ONE (10:13)
[2024-08-25] MEDS ORDERED: ALBUTEROL (0.083%) 2.5MG/3ML NEB HHN PRN (10:15)
[2024-08-25] MEDS ORDERED: LABETALOL 5MG/ML 4ML INJ IV PRN (10:30)
[2024-08-25] MEDS ORDERED: ROPIVACAINE HCL 1% 20 ML VIAL EPI ONE (11:14)
[2024-08-25] MEDS: ONDANSETRON HCL 4MG/2ML INJ IV PRN ×2 (12:01→17:08)
[2024-08-25] MEDS: MEPERIDINE HCL/PF 25MG/ML CPJ IV PRN (12:02)
[2024-08-25 12:43] LABS: CHLORIDE 107 mEq/L (98-107); POTASSIUM 4.1 mEq/L (3.5-5.1); SODIUM 140 mEq/L (136-145)
[2024-08-25 12:44] LABS: CALCIUM 8.5 mg/dL (8.7-10.4); CARBON DIOXIDE 24 mEq/L (21-32)
[2024-08-25 12:45] LABS: HEMATOCRIT 42.2 % (36.0-48.0); MEAN CORPUSCULAR HEMOGLOBIN 28.1 pg (28.0-32.0); MEAN CORPUSCULAR HGB CONC 33.2 g/dL (31.0-37.0); MEAN CORPUSCULAR VOLUME 84.7 fL (81.0-99.0); PLATELET 389 x1000/uL (130-400); RED BLOOD CELL COUNT 4.98 mill/uL (4.2-5.4); RED CELL DISTRIBUTION WIDTH 14.3 % (11.6-14.6); WHITE BLOOD COUNT 19.1 x1000/uL (4.5-11.0)
[2024-08-25 12:49] LABS: CREATININE 0.8 mg/dL (0.6-1.0); GLUCOSE 164 mg/dL (70-105); UREA NITROGEN BLOOD 13 mg/dL (9-23)
[2024-08-25] MEDS: HYDROMORPHONE HCL/PF 1MG/ML INJ IV PRN (13:25)
[2024-08-25 13:40] VITALS: BP 134/82; PULSE 64; RESP 17; TEMP 36.5
[2024-08-25] MEDS ORDERED: DEXTROSE 50% WATER 50ML SYRINGE IV PRN (14:45)
[2024-08-25 16:00] VITALS: BP 129/63; PULSE 63; RESP 19; TEMP 35.4; O2SAT 97
[2024-08-25] MEDS: MONTELUKAST SODIUM 10MG TABLET PO SCH (17:00)
[2024-08-25] MEDS: INSULIN LISPRO 100 UNITS/ML SUBCUT SCH (17:30)
[2024-08-25] MEDS: BLOOD SUGAR DIAGNOSTIC STRIP TEST SCH ×2 (17:50→20:00)
[2024-08-25] MEDS: CEFAZOLIN 1000MG PREMIX 50 ML IV SCH (17:50)
[2024-08-25 20:00] VITALS: BP 105/58; PULSE 68; RESP 16; TEMP 36.4; O2SAT 97
[2024-08-25] MEDS: ATORVASTATIN CALCIUM 10MG TABLET PO SCH (20:38)
[2024-08-25] MEDS: SENNOSIDES/DOCUSATE SOD 8.6/50MG TABLET PO SCH (20:38)
[2024-08-25] MEDS: HYDROCODONE/ACETAMINOPHEN 5/325MG TABLET PO PRN (20:38)
[2024-08-25] MEDS: METOCLOPRAMIDE HCL 10MG/2ML VIAL IV SCH (21:58)
[2024-08-25] MEDS: KETOROLAC 30MG/ML VIAL IV PRN (23:26)
[2024-08-26 04:00] VITALS: BP 103/55; PULSE 71; RESP 18; TEMP 36.6; O2SAT 97
[2024-08-26 07:34] LABS: CARBON DIOXIDE 25 mEq/L (21-32); CHLORIDE 105 mEq/L (98-107); POTASSIUM 3.8 mEq/L (3.5-5.1); SODIUM 140 mEq/L (136-145)
[2024-08-26 07:35] LABS: CALCIUM 9.1 mg/dL (8.7-10.4)
[2024-08-26 07:36] LABS: BASOPHILS % 0.1 % (0.0-2.0); HEMATOCRIT. 37.9 % (36.0-48.0); HEMOGLOBIN. 12.9 g/dL (12.0-16.0); LYMPHOCYTES % 14.5 % (20.0-50.0); MEAN CORPUSCULAR HEMOGLOBIN 28.4 pg (28.0-32.0); MEAN CORPUSCULAR VOLUME 83.5 fL (81.0-99.0); MEAN PLATELET VOLUME 7.7 fl (7.4-10.4); MONOCYTES % 7.5 % (2.0-8.0); NEUTROPHILS % 77.9 % (40.0-76.0); PLATELET 355 x1000/uL (130-400); RED BLOOD CELL COUNT 4.54 mill/uL (4.2-5.4); RED CELL DISTRIBUTION WIDTH 13.8 % (11.6-14.6); WHITE BLOOD COUNT 17.1 x1000/uL (4.5-11.0)
[2024-08-26 07:40] LABS: CREATININE 0.7 mg/dL (0.6-1.0)
[2024-08-26 07:41] LABS: GLUCOSE 126 mg/dL (70-105); UREA NITROGEN BLOOD 16 mg/dL (9-23)
[2024-08-26 08:00] VITALS: BP 142/80; PULSE 79; RESP 19; TEMP 36.9; O2SAT 98
[2024-08-26] MEDS: ASPIRIN 81MG TABLET PO SCH (08:30)
[2024-08-26] MEDS: MULTIVITAMINS,THER W-MINERALS TABLET PO SCH (08:30)
[2024-08-26] MEDS: LISINOPRIL 10MG TABLET PO SCH (08:30)
[2024-08-26] MEDS ORDERED: LISINOPRIL 10MG TABLET PO SCH (09:00)
[2024-08-26 12:00] VITALS: BP 119/72; PULSE 70; RESP 19; TEMP 37; O2SAT 99
[2024-08-26] MEDS: BACLOFEN 10MG TABLET PO PRN (13:00)
[2024-08-26 16:00] VITALS: BP 108/44; PULSE 70; RESP 19; TEMP 36.2; O2SAT 98
[2024-08-26] MEDS: HYDROCODONE/ACETAMINOPHEN 5/325MG TABLET PO PRN (16:19)
[2024-08-26 20:00] VITALS: BP 123/57; PULSE 76; RESP 18; TEMP 36.8; O2SAT 100
[2024-08-26 23:30] VITALS: BP 123/57; PULSE 76; RESP 18; TEMP 36.8; O2SAT 100
[2024-08-27 04:00] VITALS: BP 122/76; PULSE 79; RESP 18; TEMP 36.8; O2SAT 99
[2024-08-27 08:00] VITALS: BP 113/56; PULSE 77; RESP 20; TEMP 36.2; O2SAT 99
[2024-08-27 12:00] VITALS: BP 106/59; PULSE 76; RESP 20; TEMP 36.2; O2SAT 100
[2024-08-27 16:00] VITALS: BP 106/44; PULSE 87; RESP 20; TEMP 36.1; O2SAT 98
[2024-08-27 18:22] LABS: BASOPHILS % 0.2 % (0.0-2.0); EOSINOPHILS % 0.3 % (0.0-5.0); HEMATOCRIT. 38.3 % (36.0-48.0); HEMOGLOBIN. 12.5 g/dL (12.0-16.0); LYMPHOCYTES % 15.7 % (20.0-50.0); MEAN CORPUSCULAR HEMOGLOBIN 28.2 pg (28.0-32.0); MEAN CORPUSCULAR HGB CONC 32.7 g/dL (31.0-37.0); MEAN CORPUSCULAR VOLUME 86.2 fL (81.0-99.0); MEAN PLATELET VOLUME 7.8 fl (7.4-10.4); NEUTROPHILS % 76.8 % (40.0-76.0); PLATELET 320 x1000/uL (130-400); RED BLOOD CELL COUNT 4.44 mill/uL (4.2-5.4); RED CELL DISTRIBUTION WIDTH 13.9 % (11.6-14.6); WHITE BLOOD COUNT 15.2 x1000/uL (4.5-11.0)
[2024-08-27 18:28] LABS: CARBON DIOXIDE 26 mEq/L (21-32); CHLORIDE 104 mEq/L (98-107); POTASSIUM 3.8 mEq/L (3.5-5.1); SODIUM 139 mEq/L (136-145)
[2024-08-27 18:29] LABS: CALCIUM 8.8 mg/dL (8.7-10.4)
[2024-08-27 18:34] LABS: CREATININE 0.7 mg/dL (0.6-1.0); GLUCOSE 114 mg/dL (70-105); UREA NITROGEN BLOOD 12 mg/dL (9-23)
[2024-08-27 20:00] VITALS: BP 120/62; PULSE 86; RESP 18; TEMP 36.4; O2SAT 96
[2024-08-28 04:00] VITALS: BP 111/65; PULSE 81; RESP 18; TEMP 36.4
[2024-08-28 08:00] VITALS: BP 118/64; PULSE 85; RESP 18; TEMP 36.7; O2SAT 100
[2024-08-28 11:42] VITALS: BP 114/61; PULSE 97; RESP 18; TEMP 36.7; O2SAT 98
[2024-08-28 12:55] LABS: CLARITY URINE CLEAR (CLEAR); COLOR URINE YELLOW (YELLOW); GLUCOSE URINE NEGATIVE (NEGATIVE); KETONES URINE NEGATIVE (NEGATIVE); LEUKOCYTE ESTERASE URINE NEGATIVE (NEGATIVE); NITRITE URINE NEGATIVE (NEGATIVE); OCCULT BLOOD URINE NEGATIVE (NEGATIVE); PH URINE 6.5 (4.5-8.0); PROTEIN URINE NEGATIVE (NEGATIVE); SPECIFIC GRAVITY URINE 1.008 (1.005-1.030)
[2024-08-28 15:18] VITALS: BP 114/61; PULSE 97; TEMP 98.1; O2SAT 94
== END 2024-08-28 18:22 | disposition home or self-care (01) | DRG 470 ==
LOC: OR 08:31 → 8EST 08:32
PROC: 0SRC0JZ Replacement of Right Knee Joint with Synthetic Substitute, Open Approach (ICD-10-PCS; principal; 2024-08-25)
DX: M17.11 Unilateral primary osteoarthritis, right knee (principal); D72.829 Elevated white blood cell count, unspecified; I10 Essential (primary) hypertension; E11.9 Type 2 diabetes mellitus without complications; E78.5 Hyperlipidemia, unspecified; J45.909 Unspecified asthma, uncomplicated; G89.29 Other chronic pain; F43.9 Reaction to severe stress, unspecified; E66.9 Obesity, unspecified; Z88.0 Allergy status to penicillin; Z68.35 Body mass index [BMI] 35.0-35.9, adult
CPT/HCPCS: 36415; 73562; 80048; 81003; 82962; 83036; 85025; 85027; 86850; 86900; 88305; 88311; 97110; 97116; 97162; 97166; J0690; J1171; J1815; J1885; J2004; J2175; J2250; J2405; J2704; J2765; J2795; J3010; J3370; J3490

== ENCOUNTER → 2024-09-11 | Outpatient (CLI) | payer BC ==
[~2024-09-11] MED LIST changes: -ASPI-1406 PO; -EPINEPHRINE 1:1000 1 MG/ML AMP ONE; -HYDR-4001 PO; +LEVO5TAB29 PO; -LIDOCAINE HCL/EPINEPHRINE 1%-EPI 1:100,000 20ML VIAL ONE; -MECL-115 PO; -ONDA4TAB50 PO; -OXYC-100 MT; -POLYMYXIN B SULFATE 500000 UNITS/VIAL ONE; -SULF1TAB48 MT; -TRAM100C3 MT; -TRAM50TA3 MT; -VANCOMYCIN HCL 1GM VIAL ONE
== END | disposition home or self-care (01) ==
LOC: RAD 11:07
DX: M17.11 Unilateral primary osteoarthritis, right knee (principal); Z96.651 Presence of right artificial knee joint; Z98.890 Other specified postprocedural states
CPT/HCPCS: 73560

== ENCOUNTER 2025-03-25 22:07 | Emergency (ER) | payer BC ==
[~2025-03-25] VITALS: Ht 157.5 cm; Wt 97.0 kg
[2025-03-25 22:15] VITALS: O2SAT 98
[2025-03-25 23:18] LABS: CLARITY URINE CLEAR (CLEAR); COLOR URINE YELLOW (YELLOW); GLUCOSE URINE NEGATIVE (NEGATIVE); KETONES URINE NEGATIVE (NEGATIVE); LEUKOCYTE ESTERASE URINE NEGATIVE (NEGATIVE); NITRITE URINE NEGATIVE (NEGATIVE); OCCULT BLOOD URINE NEGATIVE (NEGATIVE); PH URINE 6.0 (4.5-8.0); PROTEIN URINE NEGATIVE (NEGATIVE); SPECIFIC GRAVITY URINE 1.007 (1.005-1.030); UROBILINOGEN URINE 0.2 E.U./dL (0.2-1.0)
[2025-03-25] MEDS: ASPIRIN 325MG EC TABLET PO NR (23:26)
[2025-03-25] MEDS: LIDOCAINE 5% PATCH TOP SCH (23:28)
[2025-03-25] MEDS: SODIUM CHLORIDE 0.9% 500 ML IV ONE (23:28)
[2025-03-25 23:38] LABS: BASOPHILS % 0.7 % (0.0-2.0); EOSINOPHILS % 1.5 % (0.0-5.0); HEMATOCRIT. 41.4 % (36.0-48.0); HEMOGLOBIN. 13.7 g/dL (12.0-16.0); LYMPHOCYTES % 26.0 % (20.0-50.0); MEAN PLATELET VOLUME 7.4 fl (7.4-10.4); MONOCYTES % 6.1 % (2.0-8.0); NEUTROPHILS % 65.7 % (40.0-76.0); PLATELET 378 x1000/uL (130-400); RED BLOOD CELL COUNT 5.02 mill/uL (4.2-5.4); RED CELL DISTRIBUTION WIDTH 14.4 % (11.6-14.6)
[2025-03-25 23:45] LABS: CREATININE 0.7 mg/dL (0.6-1.0); UREA NITROGEN BLOOD 11 mg/dL (9-23)
[2025-03-25 23:46] LABS: TROPONIN I HIGH SENSITIVITY < 4 ng/L (3.0-34)
[2025-03-25 23:47] LABS: ASPARTATE AMINOTRANSFERASE 36 IU/L (<34); BILIRUBIN DIRECT < 0.1 mg/dL (<=3.0); BILIRUBIN TOTAL 0.3 mg/dL (0.1-1.0); PROTEIN TOTAL 7.6 g/dL (6.0-8.3)
[2025-03-26] MEDS: MORPHINE SULFATE 4 MG/ML INJ (FOR IV/IM USE) IV ONE (01:22)
[2025-03-26 01:44] LABS: TROPONIN I HIGH SENSITIVITY < 4 ng/L (3.0-34)
[2025-03-26] MEDS ORDERED: ACET-2708 MT (02:14)
[2025-03-26] MEDS ORDERED: BACL-141 MT (02:14)
[2025-03-26 02:27] VITALS: BP 128/43; PULSE 71; RESP 18; TEMP 36.6; O2SAT 95
== END 2025-03-26 02:30 | disposition home or self-care (01) ==
LOC: ER 22:07
DX: R07.89 Other chest pain (principal); M25.511 Pain in right shoulder; R06.02 Shortness of breath; M54.2 Cervicalgia; J45.909 Unspecified asthma, uncomplicated; Z79.1 Long term (current) use of non-steroidal anti-inflammatories (NSAID); Z79.899 Other long term (current) drug therapy; Z88.0 Allergy status to penicillin; Z96.659 Presence of unspecified artificial knee joint
CPT/HCPCS: 99285; 96361; 71045; 80076; 80048; 81003; 83880; 83690; 85025; 84484 ×2; 36415 ×2; 93005; 96374; J2270

== ENCOUNTER → 2025-04-04 | Outpatient (CLI) | payer BC ==
[~2025-04-04] MED LIST changes: +ACET-2708 MT; +BACL-141 MT; +REGADENOSON 0.4 MG/5 ML IV ONE
== END | disposition home or self-care (01) ==
LOC: NM 08:16
PROVIDERS: ATTEND Internal Medicine
DX: I08.0 Rheumatic disorders of both mitral and aortic valves (principal); R07.9 Chest pain, unspecified
CPT/HCPCS: 78452; 93306; 93017; J2785; A9500

== ENCOUNTER → 2025-05-04 | Outpatient (CLI) | payer BC ==
[~2025-05-04] MED LIST changes: -REGADENOSON 0.4 MG/5 ML IV ONE
== END | disposition home or self-care (01) ==
LOC: MRI 09:40
PROVIDERS: ATTEND Internal Medicine Geriatric Medicine
DX: M50.123 Cervical disc disorder at C6-C7 level with radiculopathy (principal); M50.121 Cervical disc disorder at C4-C5 level with radiculopathy; M50.122 Cervical disc disorder at C5-C6 level with radiculopathy; M50.11 Cervical disc disorder with radiculopathy, high cervical region; M48.02 Spinal stenosis, cervical region
CPT/HCPCS: 72141

== ENCOUNTER → 2025-05-08 | Outpatient (CLI) | payer BC ==
[2025-05-08 08:58] LABS: BASOPHILS % 0.4 % (0.0-2.0); EOSINOPHILS % 2.3 % (0.0-5.0); HEMATOCRIT. 42.3 % (36.0-48.0); HEMOGLOBIN. 14.1 g/dL (12.0-16.0); LYMPHOCYTES % 28.9 % (20.0-50.0); MEAN PLATELET VOLUME 7.0 fl (7.4-10.4); MONOCYTES % 5.0 % (2.0-8.0); NEUTROPHILS % 63.4 % (40.0-76.0); PLATELET 348 x1000/uL (130-400); RED BLOOD CELL COUNT 5.23 mill/uL (4.2-5.4); RED CELL DISTRIBUTION WIDTH 14.4 % (11.6-14.6)
[2025-05-08 09:20] LABS: CREATININE 0.7 mg/dL (0.6-1.0); TRIGLYCERIDE 77 mg/dL (0-150); UREA NITROGEN BLOOD 13 mg/dL (9-23)
[2025-05-08 09:21] LABS: LDL CHOLESTEROL 59 mg/dL (5-100)
[2025-05-08 09:22] LABS: ASPARTATE AMINOTRANSFERASE 16 IU/L (<34); BILIRUBIN TOTAL 0.4 mg/dL (0.1-1.0); PROTEIN TOTAL 7.1 g/dL (6.0-8.3)
[2025-05-08 09:52] LABS: VITAMIN B12 SERUM 929 pg/mL (211-911)
[2025-05-09 14:10] LABS: *CREATININE RANDOM URINE 108.2 mg/dL (Not Estab.); MICROALBUMIN RANDOM URINE 8.9 ug/mL (Not Estab.); MICROALBUMIN/CREATININE RATIO 8.0 mg/g creat (0-29)
== END | disposition home or self-care (01) ==
LOC: LAB 07:59
PROVIDERS: ATTEND Internal Medicine Geriatric Medicine
DX: I10 Essential (primary) hypertension (principal); E11.69 Type 2 diabetes mellitus with other specified complication
CPT/HCPCS: 36415; 80053; 80061; 82043; 82570; 82607; 83021; 83036; 83735; 84443; 85025; 85660